=== PATIENT | female | born 1965 | race Caucasian/White ===

== ENCOUNTER 2019-11-30 17:45 | Emergency (ER) | payer OTHER ==
[2019-11-30 18:44] LABS: BASOPHILS % (AUTO) 0.1 % (0.0-5.0); EOSINOPHILS % (AUTO) 1.8 % (0.0-8.0); HEMATOCRIT 37.5 % (36-48); LYMPHOCYTES % (AUTO) 31.7 % (21.0-51.0); MEAN CORPUSCULAR HGB CONC 32.8 g/dL (32.0-36.0); MEAN CORPUSCULAR VOLUME 85.2 fL (79-99); NEUTROPHILS % (AUTO) 59.2 % (40.0-77.0); PLATELET COUNT (AUTO) 294 K/uL (130-400); RED CELL DISTRIBUTION WIDTH 12.6 % (11.0-15.5); WHITE BLOOD COUNT (AUTO) 8.9 K/uL (4.8-10.8)
[2019-11-30 19:02] LABS: POTASSIUM 3.1 mmol/L (3.5-5.1)
[2019-11-30 19:08] LABS: ALBUMIN 3.9 g/dL (3.5-5.0); BILIRUBIN,TOTAL 0.3 mg/dL (0.2-1.0)
[2019-11-30] MEDS ORDERED: CLONIDINE HCL 0.1 MG TABLET ONE (19:12)
[2019-11-30] MEDS ORDERED: POTASSIUM BICARB/CIT AC 25 MEQ TABLET.EFF ONE (19:25)
[2019-11-30 19:44] LABS: RAPID GROUP A STREP NEGATIVE (NEGATIVE)
== END 2019-11-30 21:26 | disposition home or self-care (01) ==
LOC: EDH 17:45
DX: J06.9 Acute upper respiratory infection, unspecified (principal); I10 Essential (primary) hypertension; R19.7 Diarrhea, unspecified; Z90.710 Acquired absence of both cervix and uterus; Z98.890 Other specified postprocedural states
CPT/HCPCS: 36415; 80053; 82550; 84484; 85025; 87804; 87880; 93005